=== PATIENT | male | born 1935 | race Caucasian/White ===

== ENCOUNTER 2018-07-23 12:14 | Observation (INO) ==
[2018-07-23] MEDS ORDERED: SODIUM CHLORIDE 0.9% 1000ML 250 ML IV ONE (13:10)
[2018-07-23] MEDS ORDERED: ALBUT/IPRATROP 3MG/0.5MG NEB 3 ML VIAL NEB ONE ×2 (13:10→16:27)
--- NOTE | 2018-07-23 13:24 | XRay Report ---
XR chest 1V portable CLINICAL HISTORY: 83 years-old Male presenting with Sepsis. TECHNIQUE: Portable upright AP view of the chest was obtained. COMPARISON: 01/26/2018. FINDINGS: Atherosclerosis of the aortic arch. Cardiac silhouette mildly enlarged. Pulmonary vascular prominence . Mild bronchial wall thickening. Minimal basilar opacities. No pleural effusion or pneumothorax. Deg enerative changes of the thoracic spine. Upper abdomen normal. IMPRESSION: 1. Mild cardiomegaly with volume overload/congestive change. No marky pulmonary edema. 2. Minimal bibasilar atelectasis suggested. No focal infiltrate to suggest pneumonia. Electronically signed by: Sen Ryan M.D. 07/23/2018 1:23 PM
[2018-07-23 13:28] LABS: Basophils # (auto) 0.02 K/uL (0-0.2); Basophils % (auto) 0.3 %; Eosinophils # (auto) 0.18 K/uL (0-0.5); Eosinophils % (auto) 2.9 %; Hematocrit (blood only) 43.4 % (42-52); Hemoglobin 14.4 g/dL (14.0-18.0); Immature Granulocytes # (auto) 0.02 K/uL (0.00-0.02); Immature Granulocytes % (auto) 0.3 %; Lymphocytes # (auto) 1.34 K/uL (1.2-3.4); Lymphocytes % (auto) 21.8 %; Mean Corpuscular Hgb Conc 33.2 g/dL (32-36); Mean Corpuscular Volume 98.4 fL (80-100); Mean Platelet Volume 9.3 fL (7.4-10.4); Monocytes # (auto) 0.37 K/uL (0.11-0.59); Neutrophils # (auto) 4.21 K/uL (1.4-6.5); Neutrophils % (auto) 68.7 %; Platelet Count 220 K/uL (130-400); RDW Standard Deviation 53.8 fL (36.4-46.3); Red Blood Count 4.41 M/uL (4.7-6.1); White Blood Count 6.14 K/uL (4.8-10.8)
[2018-07-23 13:37] LABS: Albumin Level 3.4 gm/dl (3.4-5.0); BUN Creatinine Ratio 12.9 (10-20); Calcium 8.8 mg/dl (8.5-10.1); Creatinine Clr Calc Pharmacy 60.1 ml/min; Est GFR (African American) 90.1; Est GFR (Non-African American) 77.7; Magnesium 1.9 mg/dl (1.8-2.4); Potassium 3.7 mmol/L (3.5-5.1)
[2018-07-23 13:38] LABS: INR 2.3 (0.9-1.1); Partial Thromboplastin Ratio 1.3; Partial Thromboplastin Time 33.6 Seconds (21.0-31.0); Prothrombin Time 21.9 Seconds (9.0-12.0)
[2018-07-23 13:41] LABS: Albumin Globulin Ratio 0.9 (0.9-2); Bilirubin,Total 0.4 mg/dl (0.1-1); Globulin 3.7 gm/dl (2.5-4.0); Total Protein 7.1 gm/dl (6.4-8.2)
[2018-07-23 14:08] LABS: Influenza A virus by PCR Neg for Influ A (Neg); Influenza B virus by PCR Neg for Influ B (Neg)
[2018-07-23 14:13] LABS: Base Excess VBG 4.2 mEq/L; Oxygen Saturation VBG 67.3 %; pH VBG 7.35 (7.36-7.41)
[2018-07-23 15:03] LABS: Appearance Urine Clear (Clear); Bacteria Urine Automated Negative (Negative); Bilirubin Urine Negative (Negative); Cast Urine Automated 0 /lpf (0-5); Color Urine Yellow; Glucose Urine UA Negative (Negative); Ketones Urine Negative (Negative); Leukocyte Esterase Urine 1+ (Negative); Nitrite Urine Negative (Negative); Protein Urine Negative (Negative); Specific Gravity Urine 1.012 (1.000-1.030); Urobilinogen Urine Negative (Negative); WBC Urine Automated >30 /hpf (0-5); pH Urine 6.5 (4.5-7.5)
[2018-07-23] MEDS ORDERED: cefTRIAXone SODIUM 1,000 MG/50 ML BAG IV STA (15:21)
[2018-07-23 16:12] LABS: Troponin I 0.209 ng/ml (0-0.045)
[2018-07-23] MEDS ORDERED: methylPREDNISolone 60 MG in SYRINGE 1 ML IV STA (16:27)
--- NOTE | 2018-07-23 17:59 | History & Physical Report ---
Date of Service July 23, 2018 Assessment & Plan (1) Chronic respiratory failure: (2) COPD exacerbation: -Admit to [facility] telemetry -Patient presenting from home with increasing confusion and shortness of breath for 3 days -In the ED, patient found to be intermittently hypoxic on room air at 87-88%, this improved with oxygen 2 L via nasal cannula and nebulizer treatments -CXR negative for focal infiltrate (suggesting mild for volume overload however patient appears dry on exam and has normal proBNP) -Influenza swab negative -Continue [id number] nebulizers, empiric azithromycin and ceftriaxone -s/p Solu-Medrol 60 mg in the ED, will continue prednisone 40 mg p.o. daily times 5 days starting tomorrow -Noted that patient continues to smoke 1 pack of cigarettes per day and is noncompliant with home O2 (3) Abnormal urinalysis: -UA suggest possible UTI -Started on empiric ceftriaxone -Gentle IVF -Follow culture (4) Metabolic encephalopathy: -Likely secondary to above -Check head CT (5) Elevated troponin: -Possibly secondary to demand ischemia from COPD exacerbation/hypoxia -EKG negative for acute ST changes -Patient denies chest pain -Initial troponin 0.2; continue to cycle cardiac enzymes, consider resting echo if significant elevation (6) Malignant melanoma, metastatic: -Follows with Dr. Jaime Klein -Currently receiving Keytruda (7) Diabetes mellitus, type II: -Hgb A1c 6.2 10/2017 -Diet controlled at home -Given use of steroids, will place on NovoLog per protocol while hospitalized (8) H/O deep venous thrombosis: -Anticoagulated on Coumadin, INR 2.3 -Monitor INR daily and adjust Coumadin accordingly (9) HTN (hypertension): -BP controlled, continue diltiazem and lisinopril (10) HLD (hyperlipidemia): -Continue statin (11) Diastolic dysfunction: (12) Mild aortic valve stenosis: -Appears dry on exam -Does not take diuretics at home -Monitor volume status are receiving IVF (13) Hypothyroidism: -Continue levothyroxine (14) Anxiety: -Continue home meds (15) DVT prophylaxis: -Anticoagulated on Coumadin, INR 2.3 History of Present Illness Chief Complaint: Altered mental status, shortness of breath Primary Care Provider: Alicja Martinez MD 83-year-old male who presents the ED with altered mental status and shortness of breath. is the bedside who provides some history. She reports that her has been having increasing confusion and shortness of breath for the past 3 days. She reports he has been more tired and sleeping most of the day. She has noticed some increased shortness of breath and nonproductive cough. He has been using his nebulizers without improvement. No fevers or chills. Denies abdominal pain, nausea, vomiting, diarrhea. No chest pain, lightheadedness, dizziness, diaphoresis, syncopal events. Denies urinary symptoms. In the ED, patient was intimately hypoxic at 87-88% on room air. This improved with oxygen via nasal cannula and nebulizer treatment. reports that patient is to be wearing oxygen 24 hours a day at home however is usually noncompliant. He continues to smoke about 1 pack of cigarettes per day. ABG shows pH 7.35, PCO2 58. Troponin mildly elevated at 0.2, EKG without acute ST changes. He was given nebulizer treatment, IV ceftriaxone, IV Solu- Medrol 60 mg, IVF. Allergies Allergy/AdvReac Type Severity Reaction Status Date / Time No Known Allergies Allergy Verified 07/23/18 14:20 Home Medications Home Medications Medication Instructions Recorded Confirmed Type alendronate 70 mg PO WK 07/23/18 07/23/18 History aripiprazole 4 mg PO QAM 07/23/18 07/23/18 History atorvastatin 20 mg PO DAILY 07/23/18 07/23/18 History finasteride 5 mg PO DAILY 07/23/18 07/23/18 History fluticasone-salmeterol 1 puff INHALATION BID 07/23/18 07/23/18 History folic acid 1 mg PO DAILY 07/23/18 07/23/18 History gabapentin 200 mg PO TID 07/23/18 07/23/18 History hydrocodone-acetaminophen 1 tab PO Q6 PRN 07/23/18 07/23/18 History ipratropium-albuterol 3 ml INHALATION Q4H PRN 07/23/18 07/23/18 History levothyroxine 112 mcg PO DAILY 07/23/18 07/23/18 History lisinopril 20 mg PO DAILY 07/23/18 07/23/18 History pantoprazole 40 mg PO DAILY 07/23/18 07/23/18 History potassium chloride [Klor-Con M10] 20 meq PO DAILY 07/23/18 07/23/18 History tamsulosin 0.4 mg PO BID 07/23/18 07/23/18 History venlafaxine 75 mg PO QAM 07/23/18 07/23/18 History venlafaxine 150 mg PO QAM 07/23/18 07/23/18 History warfarin 1 mg PO MOWEFR 07/23/18 07/23/18 History warfarin 2 mg PO SUTUTHSA 07/23/18 07/23/18 History colestipol [Colestid] 5 g PO BID 30 Days #60 ea 07/25/18 Rx diltiazem HCl 60 mg PO BID 30 Days #60 tab 07/25/18 Rx Past Med/Surg History Medical History Anxiety (Chronic) Mild aortic valve stenosis (Chronic) Malignant melanoma, metastatic (Chronic) S/P multiple resections Diabetes mellitus, type II (Chronic) HTN (hypertension) (Chronic) HLD (hyperlipidemia) (Chronic) COPD (chronic obstructive pulmonary disease) (Chronic) Chronic respiratory failure (Chronic) "Uses 2L [place] O2 at home PRN " Diastolic dysfunction (Chronic) "Jun 2016 echo with grade 1 diastolic dysfunction. EF 55-60%, aortic valve stenosis" Tobacco use disorder (Chronic) Hypothyroidism (Chronic) H/O deep venous thrombosis (Chronic) "On coumadin" Surgical History S/P cholecystectomy (Resolved) Family History Other Family history non-contributory Social History marital status: Current Living Situation: Spouse Feels Safe at Home: Yes Smoking Status: Current every day smoker Tobacco Type: cigarettes Cigarettes per Day: 20 Second Hand Exposure: No Hx Alcohol Use: No Hx Substance Use: No Beliefs That Will Affect Care: None Preferred Language: Syriac Visual Impairment: Limited Hearing Ability: Hard of Hearing Review of Systems Unobtainable due to cognitive status (Reviewed with , pertinent positives and negatives noted per HPI) Physical Exam 2 Vital Signs (Past 24 Hours): Last Vital Signs Temp 36.5 C 07/23/18 12:31 Pulse 86 07/23/18 16:39 Resp 20 07/23/18 16:39 BP 124/83 07/23/18 15:32 Pulse Ox 94 07/23/18 16:39 Constitutional: WD/WN, vitals as above + ill appearing and + lethargic ( Arouses to loud verbal stimuli) Eyes: PERRL, conjunctivae normal, anicteric sclerae ENMT: external ear and nose normal, oropharynx normal Respiratory: normal respiratory effort; no respiratory distress Auscultation: no wheezes Mildly coarse breath sounds bilaterally Cardiovascular: Rate/Rhythm: regular rate and regular rhythm Vessels: normal peripheral pulses Extremities: + edema (+1 edema RLE, +2 edema LLE ( chronic per )) Gastrointestinal (Abdomen): normal bowel sounds, soft, nontender, no hepatosplenomegaly Musculoskeletal: no cyanosis or clubbing, extremities motor strength 5/5 Skin: no rashes, warm and dry Neurologic: PERRL, EOMI, accommodation nl, no face palsy, no dysarthria Psychiatric: Orientation: + not alert Results & Data Laboratory Results Laboratory Last Values WBC 6.14 K/uL (4.8-10.8) 07/23/18 12:50 RBC 4.41 M/uL (4.7-6.1) L 07/23/18 12:50 Hgb 14.4 g/dL (14.0-18.0) 07/23/18 12:50 Hct 43.4 % (42-52) 07/23/18 12:50 MCV 98.4 fL (80-100) 07/23/18 12:50 MCH 32.7 pg (25-34) 07/23/18 12:50 MCHC 33.2 g/dL (32-36) 07/23/18 12:50 RDW Std Deviation 53.8 fL (36.4-46.3) H 07/23/18 12:50 RDW Coeff of Gerda 15.0 % (11.5-14.5) H 07/23/18 12:50 Plt Count 220 K/uL (130-400) 07/23/18 12:50 MPV 9.3 fL (7.4-10.4) 07/23/18 12:50 Immature Gran % (Auto) 0.3 % 07/23/18 12:50 Neut % (Auto) 68.7 % 07/23/18 12:50 Lymph % (Auto) 21.8 % 07/23/18 12:50 [place] % (Auto) 6.0 % 07/23/18 12:50 Eos % (Auto) 2.9 % 07/23/18 12:50 Baso % (Auto) 0.3 % 07/23/18 12:50 Immature Gran # (Auto) 0.02 K/uL (0.00-0.02) 07/23/18 12:50 Neut # (Auto) 4.21 K/uL (1.4-6.5) 07/23/18 12:50 Lymph # (Auto) 1.34 K/uL (1.2-3.4) 07/23/18 12:50 [place] # (Auto) 0.37 K/uL (0.11-0.59) 07/23/18 12:50 Eos # (Auto) 0.18 K/uL (0-0.5) 07/23/18 12:50 Baso # (Auto) 0.02 K/uL (0-0.2) 07/23/18 12:50 PT 21.9 Seconds (9.0-12.0) H 07/23/18 12:50 INR 2.3 (0.9-1.1) H 07/23/18 12:50 APTT 33.6 Seconds (21.0-31.0) H 07/23/18 12:50 PTT Ratio 1.3 07/23/18 12:50 VBG pH 7.35 (7.36-7.41) L 07/23/18 13:49 VBG pCO2 58 mmHg (38-50) H 07/23/18 13:49 VBG pO2 38 mmHg 07/23/18 13:49 VBG HCO3 31 mmol/L 07/23/18 13:49 VBG O2 Saturation 67.3 % 07/23/18 13:49 VBG Base Excess 4.2 mEq/L 07/23/18 13:49 Barometric Pressure 733.4 mm/Hg 07/23/18 13:49 Sodium 136 mmol/L (136-145) 07/23/18 12:50 Potassium 3.7 mmol/L (3.5-5.1) 07/23/18 12:50 Chloride 100 mmol/L (98-107) 07/23/18 12:50 Carbon Dioxide 30 mmol/L (21-32) 07/23/18 12:50 Anion Gap 7.0 (3-11) 07/23/18 12:50 BUN 12 mg/dl (7-18) 07/23/18 12:50 Creatinine 0.92 mg/dl (0.6-1.4) 07/23/18 12:50 Est Cr Clr Drug Dosing 60.1 ml/min 07/23/18 12:50 Est GFR ( Amer) 90.1 07/23/18 12:50 Est GFR (Non-Af Amer) 77.7 07/23/18 12:50 BUN/Creatinine Ratio 12.9 (10-20) 07/23/18 12:50 Glucose 163 mg/dl (70-99) H 07/23/18 12:50 Lactate 1.0 mmol/L (0.4-2.0) 07/23/18 13:49 Calcium 8.8 mg/dl (8.5-10.1) 07/23/18 12:50 Phosphorus 3.0 mg/dl (2.5-4.9) 07/23/18 12:50 Magnesium 1.9 mg/dl (1.8-2.4) 07/23/18 12:50 Total Bilirubin 0.4 mg/dl (0.1-1) 07/23/18 12:50 AST 67 U/L (15-37) H 07/23/18 12:50 ALT 76 U/L (12-78) 07/23/18 12:50 Alkaline Phosphatase 55 U/L (45-117) 07/23/18 12:50 Troponin I 0.209 ng/ml (0-0.045) H* 07/23/18 12:50 NT-Pro-B Natriuret Pep 153 pg/ml (0-1800) 07/23/18 12:50 Total Protein 7.1 gm/dl (6.4-8.2) 07/23/18 12:50 Albumin 3.4 gm/dl (3.4-5.0) 07/23/18 12:50 Globulin 3.7 gm/dl (2.5-4.0) 07/23/18 12:50 Albumin/Globulin Ratio 0.9 (0.9-2) 07/23/18 12:50 Urine Color Yellow 07/23/18 14:30 Urine Appearance Clear (Clear) 07/23/18 14:30 Urine pH 6.5 (4.5-7.5) 07/23/18 14:30 Ur Specific [place] 1.012 (1.000-1.030) 07/23/18 14:30 Urine Protein Negative (Negative) 07/23/18 14:30 Urine Glucose (UA) Negative (Negative) 07/23/18 14:30 Urine Ketones Negative (Negative) 07/23/18 14:30 Urine Blood Negative (Negative) 07/23/18 14:30 Urine Nitrite Negative (Negative) 07/23/18 14:30 Urine Bilirubin Negative (Negative) 07/23/18 14:30 Urine Urobilinogen Negative (Negative) 07/23/18 14:30 Ur Leukocyte Esterase 1+ (Negative) H 07/23/18 14:30 Urine WBC (Auto) >30 /hpf (0-5) H 07/23/18 14:30 Urine RBC (Auto) 0-4 /hpf (0-4) 07/23/18 14:30 U Hyaline Cast (Auto) 0 /lpf (0-5) 07/23/18 14:30 U Epithel Cells (Auto) 5-10 /lpf (0-5) H 07/23/18 14:30 Urine Bacteria (Auto) Negative (Negative) 07/23/18 14:30 Influenza Type A (PCR) Neg for Influ A (Neg) 07/23/18 13:30 Influenza Type B (PCR) Neg for Influ B (Neg) 07/23/18 13:30 Diagnostic Findings CXR IMPRESSION: 1. Mild cardiomegaly with volume overload/congestive change. No marky pulmonary edema. 2. Minimal bibasilar atelectasis suggested. No focal infiltrate to suggest pneumonia. Code Status & VTE Plan Code Status Patient is a full code as per my discussion with patient's who is the bedside. VTE Prophylaxis Plan VTE Prophylaxis will be ordered: Yes Supervising Physician Co-Signing Physician Notes Patient was seen and examined. Agreed with Melissa PEARL. I participated in the history, physical, review of systems, and physical exam. I reviewed the medications with the patient. I reviewed patient 's Labs, EKG and imaging. I formulated and discussed the assessment and plan with Melissa PEARL. I took the time to discuss and explain to the patient the lab, the imaging finding and the plan. I answered all the questions. MD Cordelia
[2018-07-23] MEDS ORDERED: CARBOHYDRATES FOR HYPOGLYCEMIA PO PRN (19:12)
[2018-07-23] MEDS ORDERED: ACETAMINOPHEN 325 MG TAB PO PRN (19:12)
[2018-07-23] MEDS ORDERED: HYDROCODONE/ACETAMOPHEN 5/325MG TAB PO PRN (19:12)
[2018-07-23] MEDS ORDERED: GLUCAGON FOR INJ 1 MG VIAL SQ PRN (19:12)
[2018-07-23] MEDS ORDERED: GLUCOSE 10 TABS/TUBE PO PRN (19:12)
[2018-07-23] MEDS ORDERED: GLUCOSE 40% GEL 15 GM TUBE PO PRN (19:12)
[2018-07-23] MEDS ORDERED: DEXTROSE 50% 50 ML SYRINGE IV PRN (19:12)
[2018-07-23] MEDS ORDERED: ALBUT/IPRATROP 3MG/0.5MG NEB 3 ML VIAL NEB PRN (19:40)
[2018-07-23] MEDS: WARFARIN SOD 1 MG TAB PO SCH (20:15)
[2018-07-23] MEDS: ALBUT/IPRATROP 3MG/0.5MG NEB 3 ML VIAL NEB SCH (20:17)
[2018-07-23] MEDS: AZITHROMYCIN 500 MG in DEXTROSE 5% 250 ML IV SCH (20:20)
[2018-07-23] MEDS: SODIUM CHLORIDE 0.9% 1000ML 1,000 ML IV SCH (20:20)
--- NOTE | 2018-07-23 21:00 | CT Scan Report ---
CT OF THE HEAD WITHOUT CONTRAST CLINICAL HISTORY: Altered mental status. COMPARISON STUDY: MRI of the brain May 17, [address] October 10, 2012. CT DOSE: 614.27 mGy.cm TECHNIQUE: Helical axial images of the head were obtained without IV contrast. Automated exposure con trol was utilized for the study. A dose lowering technique was utilized adhering to the principles o f ALARA. FINDINGS: No acute intracranial hemorrhage, midline shift or mass affect is present. Brain volume is normal for age. Ventricular system is normal. The basilar cisterns are patent. There are no extra-axi al collections. White matter hypodensity suggests small vessel disease. There are no findings to sugg est acute dural sinus thrombosis or acute territorial infarct. There is apparent proptosis. There are no significant calvarial abnormalities. IMPRESSION: No acute intracranial findings. Electronically signed by: Bang Ramos M.D. 07/23/2018 8:59 PM
[2018-07-23] MEDS: GABAPENTIN 100 MG CAP PO SCH (21:10)
[2018-07-23] MEDS: TAMSULOSIN HCL 0.4 MG CAP PO SCH (21:10)
[2018-07-23] MEDS: FLUTICASONE/SALMETEROL 100/50 (ADVAIR) 14 PUFF/1 INHALER INH SCH (21:48)
[2018-07-23] MEDS: INSULIN ASPART 100 UNITS/ML 3 ML PEN SC SCH (21:51)
[2018-07-23] MEDS: COLESTIPOL HCL 1 GM TAB PO SCH (22:38)
--- NOTE | 2018-07-24 01:42 | Emergency Department Note ---
Entered by Deonte Klein acting as a scribe for History of Present Illness General Chief complaint: Shortness of Breath/Dyspnea Stated complaint: SHORTNESS OF BREATH, WHEEZING, DELUSIONAL Time Seen by Provider: 07/23/18 12:57 Source: family (daughter and ) Limitations: no limitations History of Present Illness Onset (ago): day(s) 2 Location: chest Pain Consistency: + constant Maximum Pain Intensity: 0 Quality: + constant Associated symptoms: + confusion, + cough and + other (congestion); no fever/ chills (fevers) The patient is an 83 year old male who presents to the Emergency Room with complaints of constant SOB since 2 days ago. Per daughter, the patient has been in and out and delusional since 2 days ago. The daughter states the patient has been having conversations from the past recently. The daughter states she arrived home 2 days ago and saw the symptoms. She states the patient's states the symptoms just started recently. The daughter states the patient has been having problems with dehydration in the past. She states the patient has been wheezing really bad. She states the patient has been having a cough and congestion. The daughter states the patient got his flu shot this year. She notes the patient has dementia and he usually gets more confused when he has an infection or is put on steroids. The patient denies having any fevers or history of heart problems. The daughter states the patient is on blood thinners - Coumadin. She states the patient falls asleep sometimes randomly and falls too. She notes the patient takes oxygen as needed and has a nebulizer. She states the patient has been getting treated for melanoma. Per , the patient' s oncologist is Dr. Klein. Home Medications Home Medications Medication Instructions Recorded Confirmed Type alendronate 70 mg PO WK 07/23/18 07/23/18 History aripiprazole 4 mg PO QAM 07/23/18 07/23/18 History atorvastatin 20 mg PO DAILY 07/23/18 07/23/18 History colestipol 2 g PO BID 07/23/18 07/23/18 History diltiazem HCl 240 mg PO DAILY 07/23/18 07/23/18 History finasteride 5 mg PO DAILY 07/23/18 07/23/18 History fluticasone-salmeterol [Advair 1 puff INHALATION BID 07/23/18 07/23/18 History Diskus] folic acid 1 mg PO DAILY 07/23/18 07/23/18 History gabapentin 200 mg PO TID 07/23/18 07/23/18 History hydrocodone-acetaminophen 1 tab PO Q6 PRN 07/23/18 07/23/18 History ipratropium-albuterol 3 ml INHALATION Q4H PRN 07/23/18 07/23/18 History levothyroxine 112 mcg PO DAILY 07/23/18 07/23/18 History lisinopril 20 mg PO DAILY 07/23/18 07/23/18 History pantoprazole 40 mg PO DAILY 07/23/18 07/23/18 History potassium chloride [Klor-Con M10] 20 meq PO DAILY 07/23/18 07/23/18 History tamsulosin 0.4 mg PO BID 07/23/18 07/23/18 History venlafaxine 75 mg PO QAM 07/23/18 07/23/18 History venlafaxine 150 mg PO QAM 07/23/18 07/23/18 History warfarin 1 mg PO MOWEFR 07/23/18 07/23/18 History warfarin 2 mg PO SUTUTHSA 07/23/18 07/23/18 History Allergies Allergy/AdvReac Type Severity Reaction Status Date / Time No Known Allergies Allergy Verified 07/23/18 14:20 Past Med/Surg History Medical History Anxiety (Chronic) Mild aortic valve stenosis (Chronic) Malignant melanoma, metastatic (Chronic) S/P multiple resections Diabetes mellitus, type II (Chronic) HTN (hypertension) (Chronic) HLD (hyperlipidemia) (Chronic) COPD (chronic obstructive pulmonary disease) (Chronic) Chronic respiratory failure (Chronic) "Uses 2L NC O2 at home PRN " Diastolic dysfunction (Chronic) "Jun 2016 echo with grade 1 diastolic dysfunction. EF 55-60%, aortic valve stenosis" Tobacco use disorder (Chronic) Hypothyroidism (Chronic) H/O deep venous thrombosis (Chronic) "On coumadin" Surgical History S/P cholecystectomy (Resolved) Family History Other Family history non-contributory Social History Current Living Situation: Spouse Other Information That Helps Us Care for You: No Feels Safe at Home: Yes Safety Concerns: Feels Safe At This Time Smoking Status: Current every day smoker Tobacco Type: cigarettes Cigarettes per Day: 20 Do You Dip or Chew Tobacco: No Second Hand Exposure: No Tobacco Cessation Education Requested by Patient: No Hx Alcohol Use: No Hx Substance Use: No Beliefs That Will Affect Care: None Preferred Language: Lao Communication Ability: Effective Communication Ability Comment: intermittent confusion w/ illness Food Sampler Required: No Review of Systems See HPI for pertinent positives & negatives. and A total of 10 systems reviewed and were otherwise negative Physical Exam Vital Signs Vital Signs - 24 hr 07/23/18 12:31 07/23/18 12:41 07/23/18 12:46 Temperature 36.5 C Temperature Source Oral Sepsis Recent Fever Within 48 Hours No Sepsis New/Unexplained Change in Mental Status No Sepsis Action Taken by Nursing No Action Required Pulse Rate 74 76 77 Pulse Rate [Right Finger] Pulse Rhythm [Right Finger] Pulse Strength [Right Finger] Respiratory Rate 18 17 20 Respiratory Effort / Characteristics Respiratory Depth Respiratory Pattern Blood Pressure 121/74 171/90 H 142/83 H Blood Pressure [Right Arm] Blood Pressure Mean 89 117 102 Blood Pressure Mean [Right Arm] Blood Pressure Position Sitting Blood Pressure Position [Right Arm] Pulse Oximetry 93 92 91 Oxygen Delivery Method Room Air Room Air Room Air Oxygen Flow Rate 07/23/18 12:49 07/23/18 13:01 07/23/18 13:16 Temperature Temperature Source Sepsis Recent Fever Within 48 Hours Sepsis New/Unexplained Change in Mental Status Sepsis Action Taken by Nursing Pulse Rate 77 82 Pulse Rate [Right Finger] Pulse Rhythm [Right Finger] Pulse Strength [Right Finger] Respiratory Rate 18 14 Respiratory Effort / Characteristics Respiratory Depth Respiratory Pattern Blood Pressure 149/78 H 166/87 H Blood Pressure [Right Arm] Blood Pressure Mean 101 113 Blood Pressure Mean [Right Arm] Blood Pressure Position Blood Pressure Position [Right Arm] Pulse Oximetry 92 92 92 Oxygen Delivery Method Room Air Room Air Room Air Oxygen Flow Rate 07/23/18 13:33 07/23/18 13:36 07/23/18 13:52 Temperature Temperature Source Sepsis Recent Fever Within 48 Hours Sepsis New/Unexplained Change in Mental Status Sepsis Action Taken by Nursing Pulse Rate 76 81 Pulse Rate [Right Finger] 78 Pulse Rhythm [Right Finger] Pulse Strength [Right Finger] Respiratory Rate 17 19 17 Respiratory Effort / Characteristics Non-Labored Spontaneous Respiratory Depth Respiratory Pattern Blood Pressure 145/95 H 164/89 H Blood Pressure [Right Arm] Blood Pressure Mean 111 114 Blood Pressure Mean [Right Arm] Blood Pressure Position Blood Pressure Position [Right Arm] Pulse Oximetry 90 96 100 Oxygen Delivery Method Room Air Nebulizer Nebulizer Oxygen Flow Rate 07/23/18 14:02 07/23/18 14:16 07/23/18 14:31 Temperature Temperature Source Sepsis Recent Fever Within 48 Hours Sepsis New/Unexplained Change in Mental Status Sepsis Action Taken by Nursing Pulse Rate 79 81 84 Pulse Rate [Right Finger] Pulse Rhythm [Right Finger] Pulse Strength [Right Finger] Respiratory Rate 17 19 21 Respiratory Effort / Characteristics Respiratory Depth Respiratory Pattern Blood Pressure 172/112 H 190/133 H 131/87 Blood Pressure [Right Arm] Blood Pressure Mean 132 152 101 Blood Pressure Mean [Right Arm] Blood Pressure Position Blood Pressure Position [Right Arm] Pulse Oximetry 100 93 Oxygen Delivery Method Oxygen Flow Rate 07/23/18 14:46 07/23/18 15:01 07/23/18 15:16 Temperature Temperature Source Sepsis Recent Fever Within 48 Hours Sepsis New/Unexplained Change in Mental Status Sepsis Action Taken by Nursing Pulse Rate 81 82 83 Pulse Rate [Right Finger] Pulse Rhythm [Right Finger] Pulse Strength [Right Finger] Respiratory Rate 19 21 18 Respiratory Effort / Characteristics Respiratory Depth Respiratory Pattern Blood Pressure 136/87 146/78 H 136/72 Blood Pressure [Right Arm] Blood Pressure Mean 103 100 93 Blood Pressure Mean [Right Arm] Blood Pressure Position Blood Pressure Position [Right Arm] Pulse Oximetry 90 87 L Oxygen Delivery Method Oxygen Flow Rate 07/23/18 15:20 07/23/18 15:30 07/23/18 15:32 Temperature Temperature Source Sepsis Recent Fever Within 48 Hours Sepsis New/Unexplained Change in Mental Status Sepsis Action Taken by Nursing Pulse Rate 79 81 95 H Pulse Rate [Right Finger] Pulse Rhythm [Right Finger] Pulse Strength [Right Finger] Respiratory Rate 22 19 22 Respiratory Effort / Characteristics Respiratory Depth Respiratory Pattern Blood Pressure 124/83 Blood Pressure [Right Arm] Blood Pressure Mean 96 Blood Pressure Mean [Right Arm] Blood Pressure Position Blood Pressure Position [Right Arm] Pulse Oximetry 88 L Oxygen Delivery Method Oxygen Flow Rate 07/23/18 15:33 07/23/18 15:40 07/23/18 15:46 Temperature Temperature Source Sepsis Recent Fever Within 48 Hours Sepsis New/Unexplained Change in Mental Status Sepsis Action Taken by Nursing Pulse Rate 85 76 86 Pulse Rate [Right Finger] Pulse Rhythm [Right Finger] Pulse Strength [Right Finger] Respiratory Rate 18 18 17 Respiratory Effort / Characteristics Respiratory Depth Respiratory Pattern Blood Pressure 139/82 Blood Pressure [Right Arm] Blood Pressure Mean 101 Blood Pressure Mean [Right Arm] Blood Pressure Position Blood Pressure Position [Right Arm] Pulse Oximetry Oxygen Delivery Method Oxygen Flow Rate 07/23/18 15:50 07/23/18 16:00 07/23/18 16:01 Temperature Temperature Source Sepsis Recent Fever Within 48 Hours Sepsis New/Unexplained Change in Mental Status Sepsis Action Taken by Nursing Pulse Rate 84 82 86 Pulse Rate [Right Finger] Pulse Rhythm [Right Finger] Pulse Strength [Right Finger] Respiratory Rate 17 17 19 Respiratory Effort / Characteristics Respiratory Depth Respiratory Pattern Blood Pressure 113/65 Blood Pressure [Right Arm] Blood Pressure Mean 81 Blood Pressure Mean [Right Arm] Blood Pressure Position Blood Pressure Position [Right Arm] Pulse Oximetry Oxygen Delivery Method Oxygen Flow Rate 07/23/18 16:10 07/23/18 16:16 07/23/18 16:20 Temperature Temperature Source Sepsis Recent Fever Within 48 Hours Sepsis New/Unexplained Change in Mental Status Sepsis Action Taken by Nursing Pulse Rate 84 84 85 Pulse Rate [Right Finger] Pulse Rhythm [Right Finger] Pulse Strength [Right Finger] Respiratory Rate 18 15 17 Respiratory Effort / Characteristics Respiratory Depth Respiratory Pattern Blood Pressure 129/63 Blood Pressure [Right Arm] Blood Pressure Mean 85 Blood Pressure Mean [Right Arm] Blood Pressure Position Blood Pressure Position [Right Arm] Pulse Oximetry Oxygen Delivery Method Oxygen Flow Rate 07/23/18 16:30 07/23/18 16:31 07/23/18 16:39 Temperature Temperature Source Sepsis Recent Fever Within 48 Hours Sepsis New/Unexplained Change in Mental Status Sepsis Action Taken by Nursing Pulse Rate 81 84 Pulse Rate [Right Finger] 86 Pulse Rhythm [Right Finger] Pulse Strength [Right Finger] Respiratory Rate 16 15 20 Respiratory Effort / Characteristics Non-Labored Spontaneous Respiratory Depth Respiratory Pattern Blood Pressure 102/64 Blood Pressure [Right Arm] Blood Pressure Mean 76 Blood Pressure Mean [Right Arm] Blood Pressure Position Blood Pressure Position [Right Arm] Pulse Oximetry 94 Oxygen Delivery Method Room Air Nasal Cannula Oxygen Flow Rate 07/23/18 16:40 07/23/18 16:46 07/23/18 16:50 Temperature Temperature Source Sepsis Recent Fever Within 48 Hours Sepsis New/Unexplained Change in Mental Status Sepsis Action Taken by Nursing Pulse Rate 85 86 87 Pulse Rate [Right Finger] Pulse Rhythm [Right Finger] Pulse Strength [Right Finger] Respiratory Rate 18 17 17 Respiratory Effort / Characteristics Respiratory Depth Respiratory Pattern Blood Pressure 97/52 L Blood Pressure [Right Arm] Blood Pressure Mean 67 Blood Pressure Mean [Right Arm] Blood Pressure Position Blood Pressure Position [Right Arm] Pulse Oximetry Oxygen Delivery Method Oxygen Flow Rate 07/23/18 17:00 07/23/18 17:01 07/23/18 17:10 Temperature Temperature Source Sepsis Recent Fever Within 48 Hours Sepsis New/Unexplained Change in Mental Status Sepsis Action Taken by Nursing Pulse Rate 87 86 88 Pulse Rate [Right Finger] Pulse Rhythm [Right Finger] Pulse Strength [Right Finger] Respiratory Rate 17 16 17 Respiratory Effort / Characteristics Respiratory Depth Respiratory Pattern Blood Pressure 98/52 L Blood Pressure [Right Arm] Blood Pressure Mean 67 Blood Pressure Mean [Right Arm] Blood Pressure Position Blood Pressure Position [Right Arm] Pulse Oximetry Oxygen Delivery Method Oxygen Flow Rate 07/23/18 17:16 07/23/18 17:20 07/23/18 17:30 Temperature Temperature Source Sepsis Recent Fever Within 48 Hours Sepsis New/Unexplained Change in Mental Status Sepsis Action Taken by Nursing Pulse Rate 87 89 87 Pulse Rate [Right Finger] Pulse Rhythm [Right Finger] Pulse Strength [Right Finger] Respiratory Rate 16 17 19 Respiratory Effort / Characteristics Respiratory Depth Respiratory Pattern Blood Pressure 103/61 Blood Pressure [Right Arm] Blood Pressure Mean 75 Blood Pressure Mean [Right Arm] Blood Pressure Position Blood Pressure Position [Right Arm] Pulse Oximetry Oxygen Delivery Method Oxygen Flow Rate 07/23/18 17:31 07/23/18 17:40 07/23/18 17:46 Temperature Temperature Source Sepsis Recent Fever Within 48 Hours Sepsis New/Unexplained Change in Mental Status Sepsis Action Taken by Nursing Pulse Rate 102 H 93 H 89 Pulse Rate [Right Finger] Pulse Rhythm [Right Finger] Pulse Strength [Right Finger] Respiratory Rate 20 20 24 Respiratory Effort / Characteristics Respiratory Depth Respiratory Pattern Blood Pressure 107/80 95/75 L Blood Pressure [Right Arm] Blood Pressure Mean 89 81 Blood Pressure Mean [Right Arm] Blood Pressure Position Blood Pressure Position [Right Arm] Pulse Oximetry 80 L Oxygen Delivery Method Oxygen Flow Rate 07/23/18 17:50 07/23/18 17:58 07/23/18 18:00 Temperature Temperature Source Sepsis Recent Fever Within 48 Hours Sepsis New/Unexplained Change in Mental Status Sepsis Action Taken by Nursing Pulse Rate 92 H 97 H 94 H Pulse Rate [Right Finger] 96 H Pulse Rhythm [Right Finger] Pulse Strength [Right Finger] Respiratory Rate 20 23 19 Respiratory Effort / Characteristics Respiratory Depth Shallow Respiratory Pattern Tachypnea Blood Pressure 122/76 Blood Pressure [Right Arm] 122/76 Blood Pressure Mean 91 Blood Pressure Mean [Right Arm] 91 Blood Pressure Position Blood Pressure Position [Right Arm] Pulse Oximetry 99 100 Oxygen Delivery Method Room Air Oxygen Flow Rate 07/23/18 18:02 07/23/18 18:10 07/23/18 18:18 Temperature Temperature Source Sepsis Recent Fever Within 48 Hours Sepsis New/Unexplained Change in Mental Status Sepsis Action Taken by Nursing Pulse Rate 101 H 93 H 95 H Pulse Rate [Right Finger] Pulse Rhythm [Right Finger] Pulse Strength [Right Finger] Respiratory Rate 20 17 19 Respiratory Effort / Characteristics Respiratory Depth Respiratory Pattern Blood Pressure 59/37 L 97/72 L Blood Pressure [Right Arm] Blood Pressure Mean 44 80 Blood Pressure Mean [Right Arm] Blood Pressure Position Blood Pressure Position [Right Arm] Pulse Oximetry 99 99 100 Oxygen Delivery Method Oxygen Flow Rate 07/23/18 18:20 07/23/18 18:30 07/23/18 18:31 Temperature Temperature Source Sepsis Recent Fever Within 48 Hours Sepsis New/Unexplained Change in Mental Status Sepsis Action Taken by Nursing Pulse Rate 94 H 95 H 90 Pulse Rate [Right Finger] Pulse Rhythm [Right Finger] Pulse Strength [Right Finger] Respiratory Rate 18 19 21 Respiratory Effort / Characteristics Respiratory Depth Respiratory Pattern Blood Pressure 120/57 L Blood Pressure [Right Arm] Blood Pressure Mean 78 Blood Pressure Mean [Right Arm] Blood Pressure Position Blood Pressure Position [Right Arm] Pulse Oximetry Oxygen Delivery Method Oxygen Flow Rate 07/23/18 18:36 07/23/18 18:40 07/23/18 18:46 Temperature Temperature Source Sepsis Recent Fever Within 48 Hours Sepsis New/Unexplained Change in Mental Status Sepsis Action Taken by Nursing Pulse Rate 107 H 106 H Pulse Rate [Right Finger] 104 H Pulse Rhythm [Right Finger] Pulse Strength [Right Finger] Respiratory Rate 30 H 24 18 Respiratory Effort / Characteristics Respiratory Depth Respiratory Pattern Blood Pressure 109/68 Blood Pressure [Right Arm] 120/57 L Blood Pressure Mean 81 Blood Pressure Mean [Right Arm] 78 Blood Pressure Position Blood Pressure Position [Right Arm] Pulse Oximetry 92 89 L 89 L Oxygen Delivery Method Room Air Oxygen Flow Rate 07/23/18 18:50 07/23/18 19:00 07/23/18 19:24 Temperature 36.6 C Temperature Source Oral Sepsis Recent Fever Within 48 Hours Sepsis New/Unexplained Change in Mental Status Sepsis Action Taken by Nursing Pulse Rate 101 H Pulse Rate [Right Finger] 85 Pulse Rhythm [Right Finger] Pulse Strength [Right Finger] Respiratory Rate 22 24 Respiratory Effort / Characteristics Respiratory Depth Respiratory Pattern Blood Pressure Blood Pressure [Right Arm] 125/63 Blood Pressure Mean Blood Pressure Mean [Right Arm] 83 Blood Pressure Position Blood Pressure Position [Right Arm] Pulse Oximetry 87 L 93 Oxygen Delivery Method Nasal Cannula Room Air Oxygen Flow Rate 2 07/23/18 20:17 07/23/18 22:45 Temperature 36.6 C Temperature Source Oral Sepsis Recent Fever Within 48 Hours Sepsis New/Unexplained Change in Mental Status Sepsis Action Taken by Nursing Pulse Rate Pulse Rate [Right Finger] 87 77 Pulse Rhythm [Right Finger] Regular Pulse Strength [Right Finger] Normal Respiratory Rate 16 23 Respiratory Effort / Characteristics Non-Labored Spontaneous Non-Labored Respiratory Depth Normal Respiratory Pattern Regular Blood Pressure Blood Pressure [Right Arm] 120/72 Blood Pressure Mean Blood Pressure Mean [Right Arm] 88 Blood Pressure Position Blood Pressure Position [Right Arm] Lying Pulse Oximetry 94 98 Oxygen Delivery Method Nasal Cannula Nasal Cannula Oxygen Flow Rate 2.5 2 GENERAL: Awake, alert, chronically ill-appearing, drowsy, in no distress HENT: Normocephalic, atraumatic. Oropharynx with mucous membranes dry and cracked. EYES: Normal conjunctiva. Sclera non-icteric. NECK: Supple. No nuchal rigidity. FROM. No JVD. PULM: Scattered wheezes, otherwise clear. CARDIAC: Regular rate, normal rhythm. Extremities warm and well perfused. Pulses equal. ABDOMEN: Soft, non-distended. No tenderness to palpation. No rebound or guarding. No masses. RECTAL: Deferred. MUSCULOSKELETAL: Chest examination reveals no tenderness. The back is symmetrical on inspection without obvious abnormality. There is no CVA tenderness to palpation. No joint edema. LOWER EXTREMITIES: Calves are equal size bilaterally and non-tender. No discoloration. 2+ lower extremity edema. No tenderness. LLE with scattered raised irregular cutaneous lesions c/w patient's melanoma. NEURO: Normal sensorium. No sensory or motor deficits noted. Moving all extremities equally. Intermittent myoclonic jerks. SKIN: Warm and dry. No jaundice noted. Course 1307: Past medical records reviewed. The patient was evaluated in room A11B, and a complete history and physical examination were performed. 1625: I reviewed the patient's case with Marium Castillo. They will evaluate the patient for further management. Administered Medications Albuterol (Duoneb) 3 ml NEB QIDR JADEN Stop: 08/22/18 19:59 Last Admin: 07/23/18 20:17 Dose: 3 ml Colestipol HCl (Colestid) 2 gm PO BID@1000,2200 JADEN Stop: 08/22/18 21:59 Last Admin: 07/23/18 22:38 Dose: 2 gm Gabapentin (Neurontin) 200 mg PO TID JADEN Stop: 08/22/18 20:59 Last Admin: 07/23/18 21:10 Dose: 200 mg Azithromycin 500 mg/ Dextrose 255 mls @ 125 mls/hr IV DAILY JADEN Stop: 07/30/18 19:11 Last Infusion: 07/23/18 22:34 Dose: 0 mls/hr Admin: 07/23/18 20:20 Dose: 125 mls/hr Sodium Chloride (Nss 1000ml) 1,000 mls @ 80 mls/hr IV .[id number] JADEN Stop: 08/22/18 19:11 Last Admin: 07/23/18 20:20 Dose: 80 mls/hr Insulin Aspart (Novolog Flexpen) 0 units SC ACHS JADEN Stop: 08/22/18 20:59 Last Admin: 07/23/18 21:51 Dose: 12 units Fluticasone/Salmeterol (Advair Diskus 100/50) 1 puffs INH BID JADEN Stop: 08/22/18 20:59 Last Admin: 07/23/18 21:48 Dose: 1 puffs Tamsulosin HCl (Flomax) 0.4 mg PO BID JADEN Stop: 08/22/18 20:59 Last Admin: 07/23/18 21:10 Dose: 0.4 mg Warfarin Sodium (Coumadin) 1 mg PO MoWeFr@1600 JADEN Stop: 08/22/18 19:11 Last Admin: 07/23/18 20:15 Dose: Not Given Discontinued Medications Albuterol (Duoneb) 12 ml NEB ONE ONE Stop: 07/23/18 13:11 Last Admin: 07/23/18 13:27 Dose: 12 ml Albuterol (Duoneb) 12 ml NEB ONE ONE Stop: 07/23/18 16:28 Last Admin: 07/23/18 16:38 Dose: 12 ml Sodium Chloride (Nss 1000ml) 250 mls @ 999 mls/hr IV .Q16M ONE Stop: 07/23/18 13:25 Last Infusion: 07/23/18 13:57 Dose: 0 mls/hr Admin: 07/23/18 13:35 Dose: 999 mls/hr Ceftriaxone Sodium (Rocephin) 1,000 mg in 50 mls @ 100 mls/hr IV NOW STA Stop: 07/23/18 15:50 Last Infusion: 07/23/18 16:12 Dose: 0 mls/hr Admin: 07/23/18 15:35 Dose: 100 mls/hr Methylprednisolone 60 mg/ (Syringe) 1.96 mls @ 1.5 mls/min IV NOW STA Stop: 07/23/18 16:28 Last Admin: 07/23/18 18:35 Dose: 1.5 mls/min Medical Decision Making Differential Diagnosis Differential diagnosis: Etiologies such as infections, reactive airway disease, COPD, pneumonia, pleural effusion, pulmonary edema, ARDS, pneumothorax, CHF, cardiac ischemia, cardiac tamponade, dysrhythmia, anemia, pulmonary embolism, musculoskeletal, gastrointestinal process, as well as others were entertained. Medical Records Attestation: I reviewed the patient's medical records. Home Medications Current Medication List: was personally reviewed by me Laboratory Data Attestation: I reviewed the patient's lab results. Result diagrams: 07/23/18 12:50 07/23/18 12:50 Lab Results 07/23/18 07/23/18 07/23/18 Range/Units 12:50 12:50 12:50 WBC 6.14 (4.8-10.8) K/uL RBC 4.41 L (4.7-6.1) M/uL Hgb 14.4 (14.0-18.0) g/dL Hct 43.4 (42-52) % MCV 98.4 (80-100) fL MCH 32.7 (25-34) pg MCHC 33.2 (32-36) g/dL RDW Std Deviation 53.8 H (36.4-46.3) fL RDW Coeff of Gerda 15.0 H (11.5-14.5) % Plt Count 220 (130-400) K/uL MPV 9.3 (7.4-10.4) fL Immature Gran % (Auto) 0.3 % Neut % (Auto) 68.7 % Lymph % (Auto) 21.8 % [place] % (Auto) 6.0 % Eos % (Auto) 2.9 % Baso % (Auto) 0.3 % Immature Gran # (Auto) 0.02 (0.00-0.02) K/uL Neut # (Auto) 4.21 (1.4-6.5) K/uL Lymph # (Auto) 1.34 (1.2-3.4) K/uL [place] # (Auto) 0.37 (0.11-0.59) K/uL Eos # (Auto) 0.18 (0-0.5) K/uL Baso # (Auto) 0.02 (0-0.2) K/uL PT 21.9 H (9.0-12.0) Seconds INR 2.3 H (0.9-1.1) APTT 33.6 H (21.0-31.0) Seconds PTT Ratio 1.3 VBG pH (7.36-7.41) VBG pCO2 (38-50) mmHg VBG pO2 mmHg VBG HCO3 mmol/L VBG O2 Saturation % VBG Base Excess mEq/L Barometric Pressure mm/Hg Sodium 136 (136-145) mmol/L Potassium 3.7 (3.5-5.1) mmol/L Chloride 100 (98-107) mmol/L Carbon Dioxide 30 (21-32) mmol/L Anion Gap 7.0 (3-11) BUN 12 (7-18) mg/dl Creatinine 0.92 (0.6-1.4) mg/dl Est Cr Clr Drug Dosing 60.1 ml/min Est GFR ( Amer) 90.1 Est GFR (Non-Af Amer) 77.7 BUN/Creatinine Ratio 12.9 (10-20) Glucose 163 H (70-99) mg/dl POC Glucose (70-99) Lactate (0.4-2.0) mmol/L Calcium 8.8 (8.5-10.1) mg/dl Phosphorus 3.0 (2.5-4.9) mg/dl Magnesium 1.9 (1.8-2.4) mg/dl Total Bilirubin 0.4 (0.1-1) mg/dl AST 67 H (15-37) U/L ALT 76 (12-78) U/L Alkaline Phosphatase 55 (45-117) U/L Troponin I 0.209 H* (0-0.045) ng/ml NT-Pro-B Natriuret Pep 153 (0-1800) pg/ml Total Protein 7.1 (6.4-8.2) gm/dl Albumin 3.4 (3.4-5.0) gm/dl Globulin 3.7 (2.5-4.0) gm/dl Albumin/Globulin Ratio 0.9 (0.9-2) Procalcitonin (0-0.5) ng/ml Urine Color Urine Appearance (Clear) Urine pH (4.5-7.5) Ur Specific [place] (1.000-1.030) Urine Protein (Negative) Urine Glucose (UA) (Negative) Urine Ketones (Negative) Urine Blood (Negative) Urine Nitrite (Negative) Urine Bilirubin (Negative) Urine Urobilinogen (Negative) Ur Leukocyte Esterase (Negative) Urine WBC (Auto) (0-5) /hpf Urine RBC (Auto) (0-4) /hpf U Hyaline Cast (Auto) (0-5) /lpf U Epithel Cells (Auto) (0-5) /lpf Urine Bacteria (Auto) (Negative) Influenza Type A (PCR) (Neg) Influenza Type B (PCR) (Neg) 07/23/18 07/23/18 07/23/18 Range/Units 12:50 13:30 13:49 WBC (4.8-10.8) K/uL RBC (4.7-6.1) M/uL Hgb (14.0-18.0) g/dL Hct (42-52) % MCV (80-100) fL MCH (25-34) pg MCHC (32-36) g/dL RDW Std Deviation (36.4-46.3) fL RDW Coeff of Gerda (11.5-14.5) % Plt Count (130-400) K/uL MPV (7.4-10.4) fL Immature Gran % (Auto) % Neut % (Auto) % Lymph % (Auto) % [place] % (Auto) % Eos % (Auto) % Baso % (Auto) % Immature Gran # (Auto) (0.00-0.02) K/uL Neut # (Auto) (1.4-6.5) K/uL Lymph # (Auto) (1.2-3.4) K/uL Deuel # (Auto) (0.11-0.59) K/uL Eos # (Auto) (0-0.5) K/uL Baso # (Auto) (0-0.2) K/uL PT (9.0-12.0) Seconds INR (0.9-1.1) APTT (21.0-31.0) Seconds PTT Ratio VBG pH (7.36-7.41) VBG pCO2 (38-50) mmHg VBG pO2 mmHg VBG HCO3 mmol/L VBG O2 Saturation % VBG Base Excess mEq/L Barometric Pressure mm/Hg Sodium (136-145) mmol/L Potassium (3.5-5.1) mmol/L Chloride (98-107) mmol/L Carbon Dioxide (21-32) mmol/L Anion Gap (3-11) BUN (7-18) mg/dl Creatinine (0.6-1.4) mg/dl Est Cr Clr Drug Dosing ml/min Est GFR ( Amer) Est GFR (Non-Af Amer) BUN/Creatinine Ratio (10-20) Glucose (70-99) mg/dl POC Glucose (70-99) Lactate 1.0 (0.4-2.0) mmol/L Calcium (8.5-10.1) mg/dl Phosphorus (2.5-4.9) mg/dl Magnesium (1.8-2.4) mg/dl Total Bilirubin (0.1-1) mg/dl AST (15-37) U/L ALT (12-78) U/L Alkaline Phosphatase (45-117) U/L Troponin I Cancelled (0-0.045) ng/ml NT-Pro-B Natriuret Pep (0-1800) pg/ml Total Protein (6.4-8.2) gm/dl Albumin (3.4-5.0) gm/dl Globulin (2.5-4.0) gm/dl Albumin/Globulin Ratio (0.9-2) Procalcitonin (0-0.5) ng/ml Urine Color Urine Appearance (Clear) Urine pH (4.5-7.5) Ur Specific [place] (1.000-1.030) Urine Protein (Negative) Urine Glucose (UA) (Negative) Urine Ketones (Negative) Urine Blood (Negative) Urine Nitrite (Negative) Urine Bilirubin (Negative) Urine Urobilinogen (Negative) Ur Leukocyte Esterase (Negative) Urine WBC (Auto) (0-5) /hpf Urine RBC (Auto) (0-4) /hpf U Hyaline Cast (Auto) (0-5) /lpf U Epithel Cells (Auto) (0-5) /lpf Urine Bacteria (Auto) (Negative) Influenza Type A (PCR) Neg for Influ A (Neg) Influenza Type B (PCR) Neg for Influ B (Neg) 07/23/18 07/23/18 07/23/18 Range/Units 13:49 14:30 19:41 WBC (4.8-10.8) K/uL RBC (4.7-6.1) M/uL Hgb (14.0-18.0) g/dL Hct (42-52) % MCV (80-100) fL MCH (25-34) pg MCHC (32-36) g/dL RDW Std Deviation (36.4-46.3) fL RDW Coeff of Gerda (11.5-14.5) % Plt Count (130-400) K/uL MPV (7.4-10.4) fL Immature Gran % (Auto) % Neut % (Auto) % Lymph % (Auto) % Deuel % (Auto) % Eos % (Auto) % Baso % (Auto) % Immature Gran # (Auto) (0.00-0.02) K/uL Neut # (Auto) (1.4-6.5) K/uL Lymph # (Auto) (1.2-3.4) K/uL Deuel # (Auto) (0.11-0.59) K/uL Eos # (Auto) (0-0.5) K/uL Baso # (Auto) (0-0.2) K/uL PT (9.0-12.0) Seconds INR (0.9-1.1) APTT (21.0-31.0) Seconds PTT Ratio VBG pH 7.35 L (7.36-7.41) VBG pCO2 58 H (38-50) mmHg VBG pO2 38 mmHg VBG HCO3 31 mmol/L VBG O2 Saturation 67.3 % VBG Base Excess 4.2 mEq/L Barometric Pressure 733.4 mm/Hg Sodium (136-145) mmol/L Potassium (3.5-5.1) mmol/L Chloride (98-107) mmol/L Carbon Dioxide (21-32) mmol/L Anion Gap (3-11) BUN (7-18) mg/dl Creatinine (0.6-1.4) mg/dl Est Cr Clr Drug Dosing ml/min Est GFR ( Amer) Est GFR (Non-Af Amer) BUN/Creatinine Ratio (10-20) Glucose (70-99) mg/dl POC Glucose (70-99) Lactate (0.4-2.0) mmol/L Calcium (8.5-10.1) mg/dl Phosphorus (2.5-4.9) mg/dl Magnesium (1.8-2.4) mg/dl Total Bilirubin (0.1-1) mg/dl AST (15-37) U/L ALT (12-78) U/L Alkaline Phosphatase (45-117) U/L Troponin I 0.203 H* (0-0.045) ng/ml NT-Pro-B Natriuret Pep (0-1800) pg/ml Total Protein (6.4-8.2) gm/dl Albumin (3.4-5.0) gm/dl Globulin (2.5-4.0) gm/dl Albumin/Globulin Ratio (0.9-2) Procalcitonin (0-0.5) ng/ml Urine Color Yellow Urine Appearance Clear (Clear) Urine pH 6.5 (4.5-7.5) Ur Specific [place] 1.012 (1.000-1.030) Urine Protein Negative (Negative) Urine Glucose (UA) Negative (Negative) Urine Ketones Negative (Negative) Urine Blood Negative (Negative) Urine Nitrite Negative (Negative) Urine Bilirubin Negative (Negative) Urine Urobilinogen Negative (Negative) Ur Leukocyte Esterase 1+ H (Negative) Urine WBC (Auto) >30 H (0-5) /hpf Urine RBC (Auto) 0-4 (0-4) /hpf U Hyaline Cast (Auto) 0 (0-5) /lpf U Epithel Cells (Auto) 5-10 H (0-5) /lpf Urine Bacteria (Auto) Negative (Negative) Influenza Type A (PCR) (Neg) Influenza Type B (PCR) (Neg) 07/23/18 07/23/18 07/23/18 Range/Units 19:41 21:35 23:24 WBC (4.8-10.8) K/uL RBC (4.7-6.1) M/uL Hgb (14.0-18.0) g/dL Hct (42-52) % MCV (80-100) fL MCH (25-34) pg MCHC (32-36) g/dL RDW Std Deviation (36.4-46.3) fL RDW Coeff of Gerda (11.5-14.5) % Plt Count (130-400) K/uL MPV (7.4-10.4) fL Immature Gran % (Auto) % Neut % (Auto) % Lymph % (Auto) % Deuel % (Auto) % Eos % (Auto) % Baso % (Auto) % Immature Gran # (Auto) (0.00-0.02) K/uL Neut # (Auto) (1.4-6.5) K/uL Lymph # (Auto) (1.2-3.4) K/uL Deuel # (Auto) (0.11-0.59) K/uL Eos # (Auto) (0-0.5) K/uL Baso # (Auto) (0-0.2) K/uL PT (9.0-12.0) Seconds INR (0.9-1.1) APTT (21.0-31.0) Seconds PTT Ratio VBG pH (7.36-7.41) VBG pCO2 (38-50) mmHg VBG pO2 mmHg VBG HCO3 mmol/L VBG O2 Saturation % VBG Base Excess mEq/L Barometric Pressure mm/Hg Sodium (136-145) mmol/L Potassium (3.5-5.1) mmol/L Chloride (98-107) mmol/L Carbon Dioxide (21-32) mmol/L Anion Gap (3-11) BUN (7-18) mg/dl Creatinine (0.6-1.4) mg/dl Est Cr Clr Drug Dosing ml/min Est GFR ( Amer) Est GFR (Non-Af Amer) BUN/Creatinine Ratio (10-20) Glucose (70-99) mg/dl POC Glucose 228 H 209 H (70-99) Lactate (0.4-2.0) mmol/L Calcium (8.5-10.1) mg/dl Phosphorus (2.5-4.9) mg/dl Magnesium (1.8-2.4) mg/dl Total Bilirubin (0.1-1) mg/dl AST (15-37) U/L ALT (12-78) U/L Alkaline Phosphatase (45-117) U/L Troponin I (0-0.045) ng/ml NT-Pro-B Natriuret Pep (0-1800) pg/ml Total Protein (6.4-8.2) gm/dl Albumin (3.4-5.0) gm/dl Globulin (2.5-4.0) gm/dl Albumin/Globulin Ratio (0.9-2) Procalcitonin < 0.05 (0-0.5) ng/ml Urine Color Urine Appearance (Clear) Urine pH (4.5-7.5) Ur Specific [place] (1.000-1.030) Urine Protein (Negative) Urine Glucose (UA) (Negative) Urine Ketones (Negative) Urine Blood (Negative) Urine Nitrite (Negative) Urine Bilirubin (Negative) Urine Urobilinogen (Negative) Ur Leukocyte Esterase (Negative) Urine WBC (Auto) (0-5) /hpf Urine RBC (Auto) (0-4) /hpf U Hyaline Cast (Auto) (0-5) /lpf U Epithel Cells (Auto) (0-5) /lpf Urine Bacteria (Auto) (Negative) Influenza Type A (PCR) (Neg) Influenza Type B (PCR) (Neg) Imaging Data Radiologist's Impression: Radiology results as stated below per my review and the radiologist's interpretation: XR chest 1V portable CLINICAL HISTORY: 83 years-old Male presenting with Sepsis. TECHNIQUE: Portable upright AP view of the chest was obtained. COMPARISON: 01/26/2018. FINDINGS: Atherosclerosis of the aortic arch. Cardiac silhouette mildly enlarged. Pulmonary vascular prominence. Mild bronchial wall thickening. Minimal basilar opacities. No pleural effusion or pneumothorax. Degenerative changes of the thoracic spine. Upper abdomen normal. IMPRESSION: 1. Mild cardiomegaly with volume overload/congestive change. No marky pulmonary edema. 2. Minimal bibasilar atelectasis suggested. No focal infiltrate to suggest pneumonia. Electronically signed by: Sen Ryan M.D. 07/23/2018 1:23 PM ECG Data Attestation: I personally reviewed and interpreted this ECG as follows: Indication: SOB/dyspnea Rate (beats per minute): 77 Rhythm: sinus rhythm Findings: + other (normal axis) and + 1st degree AV block; no acute ischemic change Blood Pressure Blood Pressure Findings: Normal blood pressure Blood Pressure Disposition: further management by hospitalist SERGIO Narrative The patient is a pleasant 83 y/o gentleman with a pmhx of metabolic encephalopathy, active melanoma, COPD, HTN, HLD, dCHF, PE on coumadin who presents to the emergency department with worsening generalized weakness with cough/congestion per HPI. On arrival the patient is chronically ill-appearing in NAD, AFVSS. EKG without acute ischemia. CXR with vascular prominence and mild bronchial wall thickening with basilar opacities. WBC and H/H wnl. VBG with mild hypercapnia to 58 with pHof 7.35, which could explain patient's myoclonic jerks. Chemistry without acidosis. Initial troponin 0.2 of unclear significance at this time, however, given patient's confusion, he is a poor historian for his sx. UA with 1+ LE and WBC > 30 suspicious for UTI. Flu negative. Thus, patient treated with CTX for UTI as well as possible PNA in the setting of COPD exacerbation. Case d/w Marium Castillo , who will evaluate the patient for further management. Impression & Plan UTI (urinary tract infection), COPD exacerbation Discharge Plan Visit Data *Final* Discharge Date/Time: 07/23/18 19:24 Chief Complaint: Shortness of Breath/Dyspnea Stated Complaint: SHORTNESS OF BREATH, WHEEZING, DELUSIONAL ED Provider: Terence Zacarias Discharge Problem: UTI (urinary tract infection), COPD exacerbation Patient Disposition: Being Evaluated by Hospitalist Discharge Instructions Interventions: ED Discharge Assessment Last Done: 07/23/18 19:24 The scribe's documentation has been prepared under my direction and personally reviewed by me in its entirety. I confirm that the note above accurately reflects all work, treatment, procedures, and medical decision making performed by me.
[2018-07-24] MEDS: LEVOTHYROXINE SODIUM 112 MCG TABLET PO SCH (06:02)
[2018-07-24 06:16] LABS: Hematocrit (blood only) 41.2 % (42-52); Hemoglobin 13.3 g/dL (14.0-18.0); Mean Corpuscular Hgb Conc 32.3 g/dL (32-36); Mean Corpuscular Volume 99.3 fL (80-100); Mean Platelet Volume 9.5 fL (7.4-10.4); Platelet Count 217 K/uL (130-400); RDW Coefficient of Variation 15.1 % (11.5-14.5); RDW Standard Deviation 54.6 fL (36.4-46.3); Red Blood Count 4.15 M/uL (4.7-6.1); White Blood Count 7.31 K/uL (4.8-10.8)
[2018-07-24 06:34] LABS: INR 2.4 (0.9-1.1); Prothrombin Time 23.3 Seconds (9.0-12.0)
[2018-07-24 06:50] LABS: BUN Creatinine Ratio 14.3 (10-20); Calcium 8.4 mg/dl (8.5-10.1); Creatinine Clr Calc Pharmacy 71.2 ml/min; Est GFR (African American) 98.6; Est GFR (Non-African American) 85.1; Potassium 4.1 mmol/L (3.5-5.1)
[2018-07-24] MEDS: ALBUT/IPRATROP 3MG/0.5MG NEB 3 ML VIAL NEB SCH ×4 (07:07→19:13)
[2018-07-24] MEDS: AZITHROMYCIN 500 MG in DEXTROSE 5% 250 ML IV SCH (08:50)
[2018-07-24] MEDS: SODIUM CHLORIDE 0.9% 1000ML 1,000 ML IV SCH (08:50)
[2018-07-24] MEDS: PANTOprazole 40 MG TAB PO SCH (08:55)
[2018-07-24] MEDS: dilTIAZem HCL 240 MG CAPCR PO SCH (08:56)
[2018-07-24] MEDS: FLUTICASONE/SALMETEROL 100/50 (ADVAIR) 14 PUFF/1 INHALER INH SCH ×2 (08:56→20:30)
[2018-07-24] MEDS: FINASTERIDE 5 MG TAB PO SCH (08:57)
[2018-07-24] MEDS: ATORVASTATIN 20 MG TAB PO SCH (08:57)
[2018-07-24] MEDS: LISINOPRIL 20 MG TAB PO SCH (08:57)
[2018-07-24] MEDS: FOLIC ACID 1 MG TAB PO SCH (08:57)
[2018-07-24] MEDS: TAMSULOSIN HCL 0.4 MG CAP PO SCH ×2 (08:57→20:32)
[2018-07-24] MEDS: POTASSIUM CHLORIDE 10 MEQ TABCR PO SCH (08:57)
[2018-07-24] MEDS: ARIPIprazole 1 MG/ML ORAL SOLN 150 ML BTL PO SCH (08:58)
[2018-07-24] MEDS: GABAPENTIN 100 MG CAP PO SCH ×3 (08:58→20:31)
[2018-07-24] MEDS: VENLAFAXINE HCL XR 150 MG CAPXR PO SCH (08:59)
[2018-07-24] MEDS: VENLAFAXINE HCL XR 75 MG CAPXR PO SCH (08:59)
[2018-07-24] MEDS ORDERED: cefTRIAXone SODIUM 1,000 MG/50 ML BAG IV SCH (09:00)
[2018-07-24] MEDS: predniSONE 20 MG TAB PO SCH (09:06)
[2018-07-24] MEDS: INSULIN ASPART 100 UNITS/ML 3 ML PEN SC SCH ×4 (09:08→20:33)
[2018-07-24] MEDS: COLESTIPOL HCL 1 GM TAB PO SCH ×2 (11:27→22:50)
[2018-07-24] MEDS ORDERED: WARFARIN SOD 2 MG TAB PO SCH (16:00)
--- NOTE | 2018-07-24 17:24 | Hospitalist Progress Note ---
Date of Service July 24, 2018 Assessment & Plan (1) Chronic respiratory failure: hx of COPD uses 02 at home occasionally pt is counselled to use 02 at night evidence of SOB /orthopnea (2) COPD exacerbation: presented with SOB symptom improved after Neb tx ./steroids -Patient presented from home with increasing confusion and shortness of breath for 3 days -In the ED, patient found to be intermittently hypoxic on room air at 87-88%, this improved with oxygen 2 L via nasal cannula and nebulizer treatments -CXR negative for focal infiltrate (suggesting mild for volume overload however patient appears dry on exam and has normal proBNP) -Influenza swab negative -s/p Solu-Medrol 60 mg in the ED, on prednisone 40 mg p.o. daily times for 5 days -Noted that patient continues to smoke 1 pack of cigarettes per day and is noncompliant with home O2 smoking cessation couselling provided counselled to use home 02 cont (3) Abnormal urinalysis: Urine culture no growth D/c Rocephin (4) Metabolic encephalopathy: presented with confusion possible due to hypoxia /COPD exacerbation symptom resolved mental status at baseline Ct head negative for acute change (5) Elevated troponin: -Possibly secondary to demand ischemia from COPD exacerbation/hypoxia -EKG negative for acute ST changes repeat troponin normalized (6) Malignant melanoma, metastatic: with wide spread mets on thigh , recurrence after wide excision -Follows with Dr. Jaime Klein -Currently receiving Keytruda as palliative care (7) Diabetes mellitus, type II: -Hgb A1c 6.2 10/2017 -Diet controlled at home -Given use of steroids, will place on NovoLog per protocol while hospitalized (8) H/O deep venous thrombosis: -Anticoagulated on Coumadin, -Monitor INR daily and adjust Coumadin accordingly (9) HTN (hypertension): -BP controlled, continue diltiazem and lisinopril (10) HLD (hyperlipidemia): -Continue statin (11) Diastolic dysfunction: (12) Mild aortic valve stenosis: pt complains of SOB Orthopnea Will D/c IVF given lasix 40 mg IV X1 (13) Hypothyroidism: -Continue levothyroxine (14) Anxiety: -Continue home meds (15) DVT prophylaxis: -Anticoagulated on Coumadin, DISPOSiTION : lives with PT/OT eval requested plan to D/c home in next 1-2 days Subjective mentions of chocking sensation at night no symptom at present denies of any SOB no cough no fever or chills present at bedside Physical Exam 2 Vital Signs (Past 24 Hours): Last Vital Signs Temp 36.8 C 07/24/18 15:14 Pulse 81 07/24/18 15:15 Resp 16 07/24/18 15:15 BP 137/69 07/24/18 15:14 Pulse Ox 96 07/24/18 15:15 Constitutional: + ill appearing (elderly male ); no acute distress Eyes: + anicteric sclerae Neck: trachea midline, no thyromegaly Respiratory: normal respiratory effort and + cough; no respiratory distress Auscultation: + diminished lung sounds; no crackles, no rales and no wheezes Cardiovascular: Rate/Rhythm: regular rate and regular rhythm Gastrointestinal (Abdomen): normal bowel sounds, soft, nontender, no hepatosplenomegaly Skin: + rash (multiple melanotic spots on back and leg), + wound (large melanotic nodule on left upper thigh, with scaly skin) and + scar (surgical excision of melanoma on left upper thigh ) Neurologic: PERRL, EOMI, accommodation nl, no face palsy, no dysarthria awake Motor/Sensory: + sensory deficit Cranial Nerves: + hearing impairment (hearing loss )
[2018-07-24] MEDS ORDERED: FUROSEMIDE 40 MG in SYRINGE 0 ML IV ONE (20:00)
[2018-07-25] MEDS ORDERED: LORazepam 0.5 MG TAB PO STA (00:09)
[2018-07-25] MEDS: LEVOTHYROXINE SODIUM 112 MCG TABLET PO SCH (06:04)
[2018-07-25] MEDS: ALBUT/IPRATROP 3MG/0.5MG NEB 3 ML VIAL NEB SCH (07:12)
[2018-07-25] MEDS: AZITHROMYCIN 500 MG in DEXTROSE 5% 250 ML IV SCH (09:00)
[2018-07-25] MEDS: POTASSIUM CHLORIDE 10 MEQ TABCR PO SCH (09:00)
[2018-07-25] MEDS: VENLAFAXINE HCL XR 75 MG CAPXR PO SCH (09:00)
[2018-07-25] MEDS: FOLIC ACID 1 MG TAB PO SCH (09:00)
[2018-07-25] MEDS: dilTIAZem HCL 240 MG CAPCR PO SCH (09:00)
[2018-07-25] MEDS: TAMSULOSIN HCL 0.4 MG CAP PO SCH (09:00)
[2018-07-25] MEDS: FINASTERIDE 5 MG TAB PO SCH (09:00)
[2018-07-25] MEDS: GABAPENTIN 100 MG CAP PO SCH ×2 (09:00→14:17)
[2018-07-25] MEDS: predniSONE 20 MG TAB PO SCH (09:01)
[2018-07-25] MEDS: LISINOPRIL 20 MG TAB PO SCH (09:01)
[2018-07-25] MEDS: ATORVASTATIN 20 MG TAB PO SCH (09:01)
[2018-07-25] MEDS: PANTOprazole 40 MG TAB PO SCH (09:01)
[2018-07-25] MEDS: FLUTICASONE/SALMETEROL 100/50 (ADVAIR) 14 PUFF/1 INHALER INH SCH (09:02)
[2018-07-25] MEDS: COLESTIPOL HCL 1 GM TAB PO SCH (09:02)
[2018-07-25] MEDS: VENLAFAXINE HCL XR 150 MG CAPXR PO SCH (09:02)
[2018-07-25] MEDS: ARIPIprazole 1 MG/ML ORAL SOLN 150 ML BTL PO SCH (09:03)
[2018-07-25] MEDS: INSULIN ASPART 100 UNITS/ML 3 ML PEN SC SCH ×3 (09:13→17:23)
[2018-07-25] MEDS ORDERED: ALBUT/IPRATROP 3MG/0.5MG NEB 3 ML VIAL NEB PRN (12:18)
--- NOTE | 2018-07-25 12:21 | Hospitalist Progress Note ---
Date of Service July 25, 2018 Assessment & Plan (1) Dysphagia: Dysphagia Noted to have dysphasia, difficulty in swallowing pills, food Patient mentions that the symptoms started a day before admission Also having choking sensation at night with coughing up sputum Ordered for speech evaluation Diet changed to minced moist with aspiration precaution Initial chest x-ray on admission showed bibasilar atelectasis no evidence of infiltrate Repeat chest x-ray ordered Present on Admission?: Yes (2) Chronic respiratory failure: hx of COPD uses 02 at home occasionally Respiratory status at approximately baseline Patient may have a component of obstructive sleep apnea, multiple choking sensation at night, family reports large loud snoring, increased somnolence during the daytime Never had sleep study Given patient's advanced malignancy, widespread metastatic melanoma, overall prognosis remains poor noncompliant with home O2 Doubt the patient will be willing to use CPAP Order for nocturnal pulse oximetry check Counseled to use oxygen continuously especially at night (3) COPD exacerbation: Resolved no wheeze, no hypoxemia, adequate oxygen on 2 L by nasal cannula presented with SOB symptom improved after Neb tx ./steroids -Patient presented from home with increasing confusion and shortness of breath for 3 days -In the ED, patient found to be intermittently hypoxic on room air at 87-88%, this improved with oxygen 2 L via nasal cannula and nebulizer treatments -CXR negative for focal infiltrate (suggesting mild for volume overload however patient appears dry on exam and has normal proBNP) -Influenza swab negative -s/p Solu-Medrol 60 mg in the ED, on prednisone 40 mg p.o. daily times for 5 days /On day 2/5 -Noted that patient continues to smoke 1 pack of cigarettes per day and is noncompliant with home O2 smoking cessation couselling provided counselled to use home 02 cont Present on Admission?: Yes (4) Abnormal urinalysis: No evidence of UTI Urine culture no growth D/c Rocephin Present on Admission?: Yes (5) Metabolic encephalopathy: presented with confusion possible due to hypoxia /COPD exacerbation symptom resolved mental status at baseline MRI of brain shows no evidence of metastasis Ct head negative for acute change (6) Elevated troponin: -Possibly secondary to demand ischemia from COPD exacerbation/hypoxia -EKG negative for acute ST changes repeat troponin Improved (7) Malignant melanoma, metastatic: with wide spread mets on thigh , recurrence after wide excision -Follows with Dr. Jaime Klein -Currently receiving Keytruda as palliative care Overall prognosis remains poor Patient lives at home with and daughter, has adequate family support Once returned home with home health, home PT patient is not interested to go to rehab Family also reports of having sundowning/increased confusion with change of environment (8) Diabetes mellitus, type II: -Hgb A1c 6.2 10/2017 -Diet controlled at home -Given use of steroids, will place on NovoLog per protocol while hospitalized (9) H/O deep venous thrombosis: -Anticoagulated on Coumadin, INR therapeutic - (10) HTN (hypertension): -BP controlled,On diltiazem and lisinopril Cardizem CD changed to short-acting, which can be crushable, as patient was having increased difficulty swallowing tablets (11) HLD (hyperlipidemia): -Continue statin Will change Colestid granules, Report of choking, swallowing difficulty On Colestid tablet (12) Diastolic dysfunction: Acute on chronic, Currently compensated Developed acute shortness of breath, orthopnea, after getting IV fluids IV fluids discontinued, given 1 dose of IV Lasix 40 Symptoms improved (13) Mild aortic valve stenosis: volume status improved after IV Lasix pt complains of SOB Orthopnea Will D/c IVF given lasix 40 mg IV X1 (14) Hypothyroidism: -Continue levothyroxine (15) Anxiety: -Continue home meds (16) DVT prophylaxis: -Anticoagulated on Coumadin, DISPOSiTION : lives with and daughter PT/OT eval requested-recommend rehab family prefers to have pt reurn home with home health and home PT plan to D/c home when medically stable daughter and updated Subjective Mentions of having a choking sensation, especially with larger pills Had multiple episodes of shortness of breath, choking episode overnight, Does not have any cough, no fever or chills Sitting up on bed, finishing lunch, Patient noted to struggle with have trouble swallowing chickens, which was a relatively dry No coughing spell noted during meal Physical Exam 2 Vital Signs (Past 24 Hours): Last Vital Signs Temp 36.6 C 07/25/18 08:00 Pulse 66 07/25/18 11:36 Resp 16 07/25/18 11:36 BP 131/72 07/25/18 08:00 Pulse Ox 98 07/25/18 11:36 Constitutional: + ill appearing (elderly male ); no acute distress Eyes: + anicteric sclerae Neck: trachea midline, no thyromegaly Respiratory: normal respiratory effort and + cough; no respiratory distress Auscultation: + diminished lung sounds; no crackles, no rales and no wheezes Cardiovascular: Rate/Rhythm: regular rate and regular rhythm Gastrointestinal (Abdomen): normal bowel sounds, soft, nontender, no hepatosplenomegaly Skin: + rash (multiple melanotic spots on back and leg), + wound (large melanotic nodule on left upper thigh, with scaly skin) and + scar (surgical excision of melanoma on left upper thigh ) Neurologic: PERRL, EOMI, accommodation nl, no face palsy, no dysarthria awake Motor/Sensory: + sensory deficit Cranial Nerves: + hearing impairment (hearing loss ) _ (1) Chronic respiratory failure Respiratory failure complication: unspecified whether with hypoxia or hypercapnia Qualified Code(s): J96.10 - Chronic respiratory failure, unspecified whether with hypoxia or hypercapnia (2) Diabetes mellitus, type II Diabetes mellitus joint terminal attack controller insulin use: unspecified joint terminal attack controller insulin use status Diabetes mellitus complication status: with kidney complications Diabetes mellitus complication detail: with chronic kidney disease Chronic kidney disease stage: stage 3 (moderate) Qualified Code(s): E11.22 - Type 2 diabetes mellitus with diabetic chronic kidney disease; N18.3 - Chronic kidney disease, stage 3 (moderate) (3) HLD (hyperlipidemia) Hyperlipidemia type: other hyperlipidemia Qualified Code(s): E78.49 - Other hyperlipidemia; E78.4 - Other hyperlipidemia (4) Hypothyroidism Hypothyroidism type: unspecified Qualified Code(s): E03.9 - Hypothyroidism, unspecified (5) HTN (hypertension) Hypertension type: unspecified Qualified Code(s): I10 - Essential (primary) hypertension (6) Dysphagia Dysphagia type: unspecified Qualified Code(s): R13.10 - Dysphagia, unspecified
--- NOTE | 2018-07-25 12:56 | XRay Report ---
XR chest 1V portable CLINICAL HISTORY: Shortness of breath. COMPARISON STUDY: Chest radiograph July 23, 2018. FINDINGS: There is no pneumothorax. There are suspected trace bilateral pleural effusions. There is m ild right basilar opacity. This has increased. Cardiomediastinal silhouette is stable. There is no ev idence for pulmonary edema. IMPRESSION: 1. Right lower lung opacity which favors atelectasis although consolidation could appear similar. 2. Trace bilateral pleural effusions. No evidence for pulmonary edema. Electronically signed by: Bang Ramos M.D. 07/25/2018 12:54 PM
[2018-07-25 13:01] LABS: INR 2.3 (0.9-1.1); Prothrombin Time 22.6 Seconds (9.0-12.0)
--- NOTE | 2018-07-25 16:21 | Discharge Summary ---
Date of Service July 25, 2018 Admission HPI Per Admitting Provider 83-year-old male who presents the ED with altered mental status and shortness of breath. is the bedside who provides some history. She reports that her has been having increasing confusion and shortness of breath for the past 3 days. She reports he has been more tired and sleeping most of the day. She has noticed some increased shortness of breath and nonproductive cough. He has been using his nebulizers without improvement. No fevers or chills. Denies abdominal pain, nausea, vomiting, diarrhea. No chest pain, lightheadedness, dizziness, diaphoresis, syncopal events. Denies urinary symptoms. In the ED, patient was intimately hypoxic at 87-88% on room air. This improved with oxygen via nasal cannula and nebulizer treatment. reports that patient is to be wearing oxygen 24 hours a day at home however is usually noncompliant. He continues to smoke about 1 pack of cigarettes per day. ABG shows pH 7.35, PCO2 58. Troponin mildly elevated at 0.2, EKG without acute ST changes. He was given nebulizer treatment, IV ceftriaxone, IV Solu- Medrol 60 mg, IVF. Principal Diagnosis DYSPHAGIA/COPD EXACERBATION /METASTATIC MELANOMA Discharge Exam Constitutional + ill appearing (elderly male ); no acute distress Eyes + anicteric sclerae Neck trachea midline, no thyromegaly Respiratory normal respiratory effort and + cough; no respiratory distress Auscultation: + diminished lung sounds; no crackles, no rales and no wheezes Cardiovascular Rate/Rhythm: regular rate and regular rhythm Gastrointestinal (Abdomen) normal bowel sounds, soft, nontender, no hepatosplenomegaly Skin + rash (multiple melanotic spots on back and leg), + wound (large melanotic nodule on left upper thigh, with scaly skin) and + scar (surgical excision of melanoma on left upper thigh ) Neurologic PERRL, EOMI, accommodation nl, no face palsy, no dysarthria awake Motor/Sensory: + sensory deficit Cranial Nerves: + hearing impairment (hearing loss ) Discharge Data Allergies Allergy/AdvReac Type Severity Reaction Status Date / Time No Known Allergies Allergy Verified 07/23/18 14:20 Consultations 07/23/18 16:27 ED Decision to Admit Stat 07/23/18 19:12 Consult Case Management - Discharge Planning Routine Ordered Studies 07/23/18 19:12 CT head/brain wo con Stat Hospital Course (1) Dysphagia: Dysphagia Noted to have dysphasia, difficulty in swallowing pills, food Patient mentions that the symptoms started a day before admission Also having choking sensation at night with coughing up sputum Ordered for speech evaluation Diet changed to minced moist with aspiration precaution appreciate input form Speech therapy : Bedside speech evaluation noted to have possible esophageal dysfunction, acid reflux recommendation for DIET : MOIST /MINCED( CUT INTO SMALL PIECES /SLIPPERY DIET ( ADD PLENTY OF GRAVY. SAUCE ) AVOID FOOD WHICH ARE DRY /HARD Always give medication in a carrier: apple sauce/pudding etc Crush medications as needed If continue to have choking sensation, or symptoms worsen in the future, may need a barium swallow study, which can be done as an outpatient at [facility] (2) Chronic respiratory failure: hx of COPD uses 02 at home occasionally Respiratory status at approximately baseline Patient may have a component of obstructive sleep apnea, multiple choking sensation at night, family reports large loud snoring, increased somnolence during the daytime Never had sleep study Given patient's advanced malignancy, widespread metastatic melanoma, overall prognosis remains poor noncompliant with home O2 Doubt the patient will be willing to use CPAP Counseled to use oxygen continuously especially at night (3) COPD exacerbation: Resolved no wheeze, no hypoxemia, adequate oxygen on 2 L by nasal cannula presented with SOB symptom improved after Neb tx ./steroids -Patient presented from home with increasing confusion and shortness of breath for 3 days -In the ED, patient found to be intermittently hypoxic on room air at 87-88%, this improved with oxygen 2 L via nasal cannula and nebulizer treatments -CXR negative for focal infiltrate (suggesting mild for volume overload however patient appears dry on exam and has normal proBNP) -Influenza swab negative -s/p Solu-Medrol 60 mg in the ED, on prednisone 40 mg p.o. daily times for 5 days /On day 2/5 -pt will continue rest of the days of oral prednisone at home -Noted that patient continues to smoke 1 pack of cigarettes per day and is noncompliant with home O2 smoking cessation couselling provided counselled to use home 02 cont (4) Abnormal urinalysis: No evidence of UTI Urine culture no growth D/c Rocephin (5) Metabolic encephalopathy: presented with confusion possible due to hypoxia /COPD exacerbation symptom resolved mental status at baseline MRI of brain shows no evidence of metastasis Ct head negative for acute change (6) Elevated troponin: -Possibly secondary to demand ischemia from COPD exacerbation/hypoxia -EKG negative for acute ST changes repeat troponin Improved (7) Malignant melanoma, metastatic: with wide spread mets on thigh , recurrence after wide excision -Follows with Dr. Jaime Klein -Currently receiving Keytruda as palliative care Overall prognosis remains poor Patient lives at home with and daughter, has adequate family support Once returned home with home health, home PT patient is not interested to go to rehab Family also reports of having sundowning/increased confusion with change of environment (8) Diabetes mellitus, type II: -Hgb A1c 6.2 10/2017 -Diet controlled at home - (9) H/O deep venous thrombosis: -Anticoagulated on Coumadin, INR therapeutic - (10) HTN (hypertension): -BP controlled,On diltiazem and lisinopril Cardizem CD changed to short-acting, which can be crushable, as patient was having increased difficulty swallowing tablets -new script sent to pharmacy (11) HLD (hyperlipidemia): -Continue statin Will change Colestid powder Report of choking, swallowing difficulty On Colestid tablet (12) Diastolic dysfunction: Acute on chronic, Currently compensated Developed acute shortness of breath, orthopnea, after getting IV fluids IV fluids discontinued, given 1 dose of IV Lasix 40 Symptoms improved (13) Mild aortic valve stenosis: stable (14) Hypothyroidism: -Continue levothyroxine (15) Anxiety: -Continue home meds (16) DVT prophylaxis: -Anticoagulated on Coumadin, DISPOSiTION : lives with and daughter Pt/OT eval appreciate recommend return home with home health /home PT Referral made to [facility] stable to be discharge home today Total Time Total Time Spent Total Time Spent (In Minutes): approx 45 mins Total Time Includes: Examination of the Patient, Discharge Planning, Medication Reconciliation and Communication With Other Providers Discharge Plan Discharge Items Patient Disposition: Home - Home Health Services Reason For Visit: ALTERED MENTAL STATUS Discharge Diagnosis: Dysphasia, COPD exacerbation, malignant metastatic melanoma Discharge Goals: Decrease discomfort, Diagnostic testing and Therapeutic intervention Activity: Resume your previous activity Non-emergency contact: Primary Care Provider Call non-emergency contact if: you have any medication questions Follow-up/Referrals: Alicja Martinez MD [Primary Care Provider] - 07/30/18 12:45 pm Diet: Regular Diet Texture: Mechanical soft (ground) Addtl Provider Instructions: YOU ARE DIAGNOSED WITH DIFFICULTY IN SWALLOWING " Bedside speech evaluation noted to have possible esophageal dysfunction, acid reflux YOU ARE ASKED TO HAVE DIET : MOIST /MINCED( CUT INTO SMALL PIECES /SLIPPERY DIET ( ADD PLENTY OF GRAVY. SAUCE ) AVOID FOOD WHICH ARE DRY /HARD Always give medication in a carrier: apple sauce/pudding etc Crush medications as needed If continue to have choking sensation, or symptoms worsen in the future, you may need a barium swallow study, which can be done as an outpatient at [facility] Prescriptions: New azithromycin [Zithromax] 250 mg Tablet 500 mg PO DAILY 3 Days Qty: 6 RF: 0 colestipol [Colestid] 5 gram Packet 5 g PO BID 30 Days Qty: 60 RF: 3 prednisone 20 mg Tablet 40 mg PO DAILY 3 Days Qty: 6 RF: 0 diltiazem HCl 60 mg Tablet 60 mg PO BID 30 Days Qty: 60 RF: 2 Continue venlafaxine 75 mg capsule,extended release 24hr 75 mg PO QAM RF: 0 atorvastatin 20 mg tablet 20 mg PO DAILY RF: 0 hydrocodone-acetaminophen 5-325 mg tablet 1 tab PO Q6 PRN (Reason: severe pain) RF: 0 lisinopril 20 mg tablet 20 mg PO DAILY RF: 0 venlafaxine 150 mg capsule,extended release 24hr 150 mg PO QAM RF: 0 tamsulosin 0.4 mg capsule 0.4 mg PO BID RF: 0 pantoprazole 40 mg tablet,delayed release (DR/EC) 40 mg PO DAILY RF: 0 folic acid 1 mg tablet 1 mg PO DAILY RF: 0 gabapentin 100 mg capsule 200 mg PO TID RF: 0 fluticasone-salmeterol 100-50 mcg/dose blister with device 1 puff Inhalation BID RF: 0 finasteride 5 mg tablet 5 mg PO DAILY RF: 0 levothyroxine 112 mcg tablet 112 mcg PO DAILY RF: 0 aripiprazole 2 mg tablet 4 mg PO QAM RF: 0 warfarin 1 mg Tablet 1 mg PO MOWEFR RF: 0 ipratropium-albuterol 0.5 mg-3 mg(2.5 mg base)/3 mL Solution For Nebulization 3 ml INHALATION Q4H PRN (Reason: shortness of breath) RF: 0 alendronate 70 mg Tablet 70 mg PO WK RF: 0 warfarin 1 mg Tablet 2 mg PO SUTUTHSA RF: 0 potassium chloride [Klor-Con M10] 10 mEq Tablet,Er Particles/Crystals 20 meq PO DAILY RF: 0 Discontinued diltiazem HCl 240 mg capsule,extended release 24hr 240 mg PO DAILY RF: 0 colestipol 1 gram tablet 2 g PO BID RF: 0 Stand-Alone Forms: [facility] Discharge Orders: Discharge Order (Routine); Ordered 07/25/18 Ordered By: Keisha Bonner Admission Data Admit Date/Time: 07/23/18 17:01 Attending Provider: Keisha Bonner Admit Provider: Valentina Storey Primary Care Provider: Alicja Martinez Other Providers: Valentina Storey Service: Medical
[2018-07-25] MEDS: WARFARIN SOD 1 MG TAB PO SCH (17:24)
[2018-07-25] MEDS ORDERED: COLESTIPOL HCL 5 GM POWDER PACK PO SCH (22:00)
[2018-07-26] MEDS ORDERED: dilTIAZem HCl 60 MG TAB PO SCH (09:00)
[2018-07-26] MEDS ORDERED: AZITHROMYCIN 250 MG TAB PO SCH (09:00)
== END 2018-07-25 18:22 | disposition home health service (06) ==
LOC: ED 12:14 → 2W 12:14 → SUATTDRO 17:01 → 2W 19:24
DX: E03.9 Hypothyroidism, unspecified; J96.10 Chronic respiratory failure, unspecified whether with hypoxia or hypercapnia; E11.22 Type 2 diabetes mellitus with diabetic chronic kidney disease; I35.0 Nonrheumatic aortic (valve) stenosis; R74.8 Abnormal levels of other serum enzymes; N18.3 Chronic kidney disease, stage 3 (moderate); R82.79 Other abnormal findings on microbiological examination of urine; Z79.899 Other long term (current) drug therapy; F41.9 Anxiety disorder, unspecified; Z86.718 Personal history of other venous thrombosis and embolism; Z79.01 Long term (current) use of anticoagulants; E78.5 Hyperlipidemia, unspecified; G93.41 Metabolic encephalopathy; R13.10 Dysphagia, unspecified; F17.210 Nicotine dependence, cigarettes, uncomplicated; J44.1 Chronic obstructive pulmonary disease with (acute) exacerbation; C79.89 Secondary malignant neoplasm of other specified sites; I51.9 Heart disease, unspecified; I11.9 Hypertensive heart disease without heart failure

== ENCOUNTER 2018-08-16 02:18 | Inpatient (IN) ==
[2018-08-16 03:05] LABS: Basophils # (auto) 0.01 K/uL (0-0.2); Basophils % (auto) 0.2 %; Eosinophils % (auto) 1.5 %; Hemoglobin 12.6 g/dL (14.0-18.0); Immature Granulocytes # (auto) 0.01 K/uL (0.00-0.02); Immature Granulocytes % (auto) 0.2 %; Lymphocytes # (auto) 1.72 K/uL (1.2-3.4); Lymphocytes % (auto) 26.5 %; Mean Corpuscular Hgb Conc 32.3 g/dL (32-36); Mean Corpuscular Volume 99.2 fL (80-100); Mean Platelet Volume 9.6 fL (7.4-10.4); Monocytes # (auto) 0.46 K/uL (0.11-0.59); Monocytes % (auto) 7.1 %; Neutrophils % (auto) 64.5 %; Platelet Count 215 K/uL (130-400); RDW Coefficient of Variation 14.5 % (11.5-14.5); RDW Standard Deviation 52.9 fL (36.4-46.3); Red Blood Count 3.93 M/uL (4.7-6.1)
[2018-08-16 03:14] LABS: INR 2.5 (0.9-1.1); Partial Thromboplastin Ratio 1.3; Partial Thromboplastin Time 33.7 Seconds (21.0-31.0); Prothrombin Time 24.3 Seconds (9.0-12.0)
[2018-08-16 03:23] LABS: BUN Creatinine Ratio 12.1 (10-20); Calcium 8.3 mg/dl (8.5-10.1); Creatinine Clr Calc Pharmacy 51.8 ml/min; Est GFR (African American) 75.9; Est GFR (Non-African American) 65.5; Potassium 3.9 mmol/L (3.5-5.1)
[2018-08-16 03:26] LABS: Albumin Globulin Ratio 0.9 (0.9-2); Bilirubin,Total 0.4 mg/dl (0.2-1); Globulin 3.3 gm/dl (2.5-4.0); Total Protein 6.3 gm/dl (6.4-8.2)
[2018-08-16 04:05] LABS: Influenza A virus by PCR Neg for Influ A (Neg); Influenza B virus by PCR Neg for Influ B (Neg)
[2018-08-16 05:10] LABS: HCO3 ABG 27 mmol/L (19-24); Oxygen Saturation ABG 95.9 % (90-95); PCO2 ABG 50 mmHg (35-46); PO2 ABG 85 mm/Hg (80-95); pH ABG 7.35 (7.35-7.45)
[2018-08-16 05:11] LABS: Allen Test POS (Pos)
[2018-08-16 06:28] LABS: Appearance Urine Clear (Clear); Bacteria Urine Automated Negative (Negative); Bilirubin Urine Negative (Negative); Color Urine Yellow; Epithelial Cell Urine Auto >30 /lpf (0-5); Glucose Urine UA Negative (Negative); Ketones Urine Negative (Negative); Leukocyte Esterase Urine 2+ (Negative); Nitrite Urine Negative (Negative); Protein Urine Negative (Negative); Specific Gravity Urine 1.014 (1.000-1.030); Urobilinogen Urine Negative (Negative); WBC Urine Automated >30 /hpf (0-5)
[2018-08-16 06:38] LABS: Renal Epithelial Cells Urine 0-5 /lpf (0-5)
[2018-08-16 06:41] LABS: Estimated Average Glucose 143 mg/dl
[2018-08-17 02:20] LABS: Hematocrit (blood only) 44.2 % (42-52); Immature Granulocytes # (auto) 0.02 K/uL (0.00-0.02); Immature Granulocytes % (auto) 0.2 %; Lymphocytes # (auto) 0.85 K/uL (1.2-3.4); Lymphocytes % (auto) 7.2 %; Mean Corpuscular Hgb Conc 33.9 g/dL (32-36); Mean Corpuscular Volume 97.4 fL (80-100); Mean Platelet Volume 9.4 fL (7.4-10.4); Monocytes # (auto) 0.26 K/uL (0.11-0.59); Monocytes % (auto) 2.2 %; Neutrophils # (auto) 10.64 K/uL (1.4-6.5); Neutrophils % (auto) 90.4 %; Platelet Count 241 K/uL (130-400); RDW Coefficient of Variation 14.5 % (11.5-14.5); RDW Standard Deviation 51.5 fL (36.4-46.3); Red Blood Count 4.54 M/uL (4.7-6.1); White Blood Count 11.77 K/uL (4.8-10.8)
[2018-08-17 02:27] LABS: INR 2.6 (0.9-1.1); Prothrombin Time 24.8 Seconds (9.0-12.0)
[2018-08-17 02:28] LABS: iSTAT Allen Test Pass; iSTAT Arterial Bld Gas O2 Sat 96; iSTAT FiO2 35 %; iSTAT Hemoglobin 14.6 g/dl (14.0-18.0)
[2018-08-17 02:44] LABS: BUN Creatinine Ratio 11.9 (10-20); Calcium 8.8 mg/dl (8.5-10.1); Creatinine Clr Calc Pharmacy 60.2 ml/min; Est GFR (African American) 92.5; Est GFR (Non-African American) 79.8; Magnesium 2.3 mg/dl (1.8-2.4); Potassium 3.7 mmol/L (3.5-5.1)
[2018-08-20 10:43] LABS: iSTAT Arterial Blood Gas HCO3 29 meg/L (19-24); iSTAT Carbon Dioxide 31 mEq/l (24-31)
== END 2018-08-17 12:19 | disposition short-term general hospital (02) ==
LOC: ED 02:18 → 2S 05:00 → 2E 10:16